=== PATIENT | male | born 1995 | race Caucasian/White ===

== ENCOUNTER 2018-04-28 20:26 | Emergency (ER) | payer OTHER ==
[~2018-04-28] VITALS: Ht 170.2 cm; Wt 68.0 kg
[2018-04-28 20:33] VITALS: BP 126/60
--- NOTE | 2018-04-28 20:33 | NUR ---
TO BED # 06 AMBULATORY, REPORT GIVEN TO HARVINDER ESCUDERO
--- NOTE | 2018-04-28 21:06 | NUR ---
Dr. Gould evaluating patient at bedside.
[2018-04-28] MEDS ORDERED: KETOROLAC 30 MG/ML VIAL IM ONE (21:20)
--- NOTE | 2018-04-28 21:35 | NUR ---
PT TAKEN TO CT
[2018-04-28 21:37] LABS: BASOPHILS % (AUTO) 0.5 % (0.0-2.0); EOSINOPHILS # (AUTO) 0.1 K/uL (0-0.4); EOSINOPHILS % (AUTO) 1.2 % (0.0-4.0); HEMATOCRIT 46.3 % (36-52); HEMOGLOBIN 15.7 g/dL (12.0-18.0); LYMPHOCYTES # (AUTO) 1.7 K/uL (2.0-11.5); LYMPHOCYTES % (AUTO) 28.5 % (20.5-51.1); MEAN CORPUSCULAR HEMOGLOBIN 31 pg (27-31); MEAN CORPUSCULAR HGB CONC 34 g/dL (33-37); MEAN CORPUSCULAR VOLUME 90.2 fL (80-94); MONOCYTES # (AUTO) 0.6 K/uL (0.8-1.0); NEUTROPHILS # (AUTO) 3.6 K/uL (1.8-7.7); NEUTROPHILS % (AUTO) 59.8 % (42.2-75.2); PLATELET COUNT (AUTO) 235 K/uL (140-450); RED BLOOD CELL COUNT(AUTO) 5.13 MIL/uL (4.20-6.10); RED CELL DISTRIBUTION WIDTH 13.3 % (11.6-13.7); WHITE BLOOD COUNT (AUTO) 6.1 K/uL (4.5-11.0)
--- NOTE | 2018-04-28 21:44 | NUR ---
PT RETURN FROM CT
[2018-04-28 21:48] LABS: APPEARANCE,URINE CLEAR (CLEAR); BILIRUBIN,URINE NEGATIVE (NEGATIVE); BLOOD, URINE NEGATIVE (NEGATIVE); COLOR,URINE YELLOW (YELLOW); LEUKOCYTE ESTERASE ,URINE NEGATIVE (NEGATIVE); NITRITE, URINE NEGATIVE (NEGATIVE); UGLUCOSE NEGATIVE (NEGATIVE)
[2018-04-28 21:49] LABS: ANION GAP 10.4 (8-16); CREATININE 1.1 mg/dL (0.7-1.3); POTASSIUM 4.4 mmol/L (3.5-5.1)
[2018-04-28 21:56] LABS: TOTAL BILIRUBIN 0.8 mg/dL (0.0-1.0)
--- NOTE | 2018-04-28 22:00 | NUR ---
PT BIB FAMILY C/O OF BACK PAIN. PT STATES SHE HAS HAD URGENCY AND FREQUENCY W/ URINATION X5 MONTHS, +SUPRAPUBIC TENDERNESS. LOWER BACK PAIN STARTED TODAY, 10/10 SHARP, INTERMITTENT PAIN W/ MOVEMENT. PT DENIES TRAUMA --DENIES N/V/D. SKIN WARM, DRY AND INTACT. PT ACTING APPROPRIATLY, AAOX4. PMH:DENIES RX: DENIES
[2018-04-29 01:25] VITALS: BP 118/64
--- NOTE | 2018-04-29 01:25 | NUR ---
Patient discharged with v/s stable. Written and verbal after care instructions given and explained. Patient alert, oriented and verbalized understanding of instructions. Ambulatory with steady gait. All questions addressed prior to discharge. ID band removed. Patient advised to follow up with PMD. Rx of BENTYL AND MAG CITRATE given. Patient educated on indication of medication including possible reaction and side effects. Opportunity to ask questions provided and answered.
[2018-05-01 06:29] LABS: CHLAMYDIA TRACHOMATIS AMP DNA Negative (Negative)
== END 2018-04-29 01:25 | disposition home or self-care (01) ==
LOC: MED 20:26
DX: K59.00 Constipation, unspecified (principal); R35.0 Frequency of micturition
CPT/HCPCS: 36415; 74176; 80053; 81003; 83690; 85025; 96372; 99284; J1885; 87491